=== PATIENT | female | born 1985 | race Caucasian/White ===

== ENCOUNTER 2016-09-06 18:01 | Observation (INO) | payer OTHER ==
[2016-09-06 18:09] VITALS: BMI 28.3
[2016-09-06] MEDS ORDERED: Albuterol-Ipratrop 3 mg / 0.5 (3 ml) UD IH STA ×3 (18:45→20:46)
--- NOTE | 2016-09-06 18:55 | ED PDOC ---
Arrival/HPI - General Chief Complaint: Back Pain Time Seen by Provider: 09/06/16 18:14 Historian: Patient - History of Present Illness Narrative History of Present Illness (Text): 09/06/16 18:27 A 31 year old female, with a past medical history of allergies and family history of coronary disease, presents to the emergency department complaining of worsening shortness of breath and a productive cough for two weeks. Patient notes back discomfort, more on the left side. Patient also notes difficulty breathing that worsens with deep breaths. Patient reports was given steroids by PMD. Patient uses an inhaler every 3-4 hours, last used an hour ago. Patient notes a sore throat and fever but denies any other complaints at this time. PMD: Dr. Kauffman medication: Azithromycin Time/Duration: Other (2 weeks) Symptom Onset: Sudden Symptom Course: Unchanged Activities at Onset: Rest Context: Home Associated Symptoms (Text): back discomfort Past Medical History - Provider Review Nursing Documentation Reviewed: Yes - Past History Past History: No Previous - Infectious Disease Hx of Infectious Diseases: None - Tetanus Immunization Tetanus Immunization: Up to Date - Past Medical History Past Medical History: No Previous - Cardiac Hx Cardiac Disorders: No - Pulmonary Hx Respiratory Disorders: Yes Hx Asthma: Yes - Neurological Hx Migraine: Yes - HEENT Hx HEENT Disorder: No Hx Deafness: No - Renal Hx Renal Disorder: No - Endocrine/Metabolic Hx Endocrine Disorders: No - Hematological/Oncological Hx Blood Disorders: No - Integumentary Hx Dermatological Disorder: No - Musculoskeletal/Rheumatological Hx Musculoskeletal Disorders: No - Gastrointestinal Hx Gastrointestinal Disorders: No - Genitourinary/Gynecological Hx Genitourinary Disorders: No - Psychiatric Hx Psychophysiologic Disorder: No Hx Anxiety: No Hx Bipolar Disorder: No Hx Depression: No Hx Emotional Abuse: No Hx Hallucinations: No Hx Panic Disorder: No Hx Post Traumatic Stress Disorder: No Hx Psychosis: No Hx Physical Abuse: No Hx Schizophrenia: No Hx Sexual Abuse: No Hx Substance Use: No - Surgical History Hx Section: Yes (x1) Hx Tonsillectomy: Yes Hx Tubal Ligation: Yes - Anesthesia Hx Anesthesia: Yes Hx Anesthesia Reactions: No Hx Malignant Hyperthermia: No - Suicidal Assessment Feels Threatened In Home Enviroment: No Family/Social History - Physician Review Nursing Documentation Reviewed: Yes Family/Social History: No Known Family HX Smoking Status: Former Smoker Hx Alcohol Use: Yes Hx Substance Use: No Hx Substance Use Treatment: No Allergies/Home Meds Allergies/Adverse Reactions: Allergies seafood Allergy (Uncoded 09/06/16 18:09) ANAPHYLAXIS Home Medications: Home Meds Medication Instructions Recorded Confirmed Albuterol HFA [Ventolin HFA 90 1 puff IH PRN PRN 09/06/16 09/06/16 mcg/actuation (8 g)] Montelukast [Singulair] 10 mg PO DAILY 09/06/16 09/06/16 Review of Systems - Review of Systems Constitutional: Fatigue, Fevers ENT: Sore Throat, Rhinorrhea, Sinus Congestion. absent: Hearing Changes, Voice Changes Respiratory: SOB, Cough (phlegm) Cardiovascular: HAYES. absent: Chest Pain, Edema Gastrointestinal: absent: Abdominal Pain, Nausea, Vomiting Musculoskeletal: Back Pain, Other (back discomfort) Neurological: absent: Dizziness, Focal Weakness Endocrine: absent: Polyuria Hemo/Lymphatic: absent: Easy Bleeding Psychiatric: absent: Depression Physical Exam Vital Signs Reviewed: Yes Vital Signs Temp Pulse Resp BP Pulse Ox 09/06/16 22:10 98.1 F 74 20 126/73 98 09/06/16 20:37 98 F 69 98 09/06/16 18:13 37.8 F L 92 H 18 119/78 100 Temperature: Afebrile Blood Pressure: Normal Pulse: Regular Respiratory Rate: Normal Appearance: Positive for: Well-Appearing, Non-Toxic, Comfortable Pain Distress: None Mental Status: Positive for: Alert and Oriented X 3 - Systems Exam Head: Present: Atraumatic, Normocephalic Pupils: Present: PERRL Extroacular Muscles: Present: EOMI Conjunctiva: Present: Normal Mouth: Present: Moist Mucous Membranes Neck: Present: Normal Range of Motion. No: Meningeal Signs Respiratory/Chest: Present: Other (mild expiratory wheezing at R base). No: Accessory Muscle Use Cardiovascular: Present: Regular Rate and Rhythm, Normal S1, S2. No: Murmurs Abdomen: Present: Normal Bowel Sounds. No: Tenderness, Distention, Peritoneal Signs Back: Present: Paraspinal Tenderness (upper back, no midline pain) Upper Extremity: Present: Normal Inspection. No: Cyanosis, Edema Lower Extremity: Present: Normal Inspection. No: Edema Neurological: Present: Speech Normal, Motor Func Grossly Intact, Normal Sensory Function Skin: Present: Warm, Dry, Normal Color, Other (no vesicular rash). No: Rashes Psychiatric: Present: Alert, Oriented x 3, Normal Insight, Normal Concentration Medical Decision Making ED Course and Treatment: 09/06/16 18:27 Impression: A 31 year old female with shortness of breath and productive cough. Differential Diagnosis included but are not limited to: pneumonia vs. bronchitis vs. pulmonary embolism vs. coronary artery disease Plan: -- EKG -- chest xray -- labs -- Urinalysis -- Reassess and disposition Prior Visits: Notes and results from previous visits were reviewed. Patient last reported to the emergency department on 01/01/16 for evaluation of headache, photophobia and diarrhea. Patient was discharged and advised to follow up with private doctor and call neurologist for headache reevaluation. Progress Notes: Patient reports two weeks of symptoms. On exam, mild wheezing noted, pain with deep breaths on re-evaluation but pain is palpable in back. No rash noted. NO rales. No calf pain or edema. No nv deficits. 09/06/16 20:13 As read by me, chest xray was unremarkable. D dimer unremarkable. sats 100%. Denies chest pain with exertion. No prior ekg for comparison. Initial troponin unremarkable. Patient has been treated with inhaler, antibiotics, steroids for past two weeks, currently on medrol dos emmy. Will administer additional nebulizer and Solumedrol as wheezing persistent after initial nebulizer. No prior EKG for comparison, although patient with unremarkable troponin, denies history of known CAD or DM or smoking. No calf pain or swelling noted. Wheezing improved but persistent after nebs and steroids. Given failure of outpatient treatment as described, will admit for observation under oncall physician Dr. Higgins, who accepts admission. She denies chest pain or tightness with exertion. Oxygen saturations 98% on room air. - Lab Interpretations Lab Results: 09/06/16 19:00 09/06/16 19:00 Lab Results 09/06/16 19:00: Sodium 138, Potassium 3.3 L, Chloride 99, Carbon Dioxide 29, Anion Gap 13, BUN 13, Creatinine 0.7, Est GFR ( Amer) > 60, Est GFR (Non- Af Amer) > 60, Random Glucose 107, Calcium 9.5, Total Bilirubin 0.5, AST 19, ALT 32, Alkaline Phosphatase 42, Lactate Dehydrogenase 328 L, Total Creatine Kinase 26 L, Troponin I < 0.01, Total Protein 7.4, Albumin 4.3, Globulin 3.1, Albumin/Globulin Ratio 1.4 09/06/16 19:00: Urine Color Yellow, Urine Appearance Sl cloudy, Urine pH 6.5, Ur Specific [place] 1.020, Urine Protein Negative, Urine Glucose (UA) Negative, Urine Ketones Negative, Urine Blood Negative, Urine Nitrate Negative, Urine Bilirubin Negative, Urine Urobilinogen 0.2, Ur Leukocyte Esterase Negative, Urine HCG, Qual Negative 09/06/16 19:00: PT 11.0, INR 1.02, APTT 28.5, D-Dimer, Quantitative 0.19 09/06/16 19:00: WBC 11.3 H, RBC 4.22, Hgb 13.4, Hct 38.4, MCV 91.0, MCH 31.8, MCHC 34.9, RDW 13.1, Plt Count 271, MPV 10.4, Gran % 59.3, Lymph % (Auto) 33.8, Mason % (Auto) 6.0, Eos % (Auto) 0.6 L, Baso % (Auto) 0.3, Gran # 6.72 H, Lymph # 3.8 H, Mason # 0.7 H, Eos # 0.1, Baso # 0.03 I have reviewed the lab results: Yes - RAD Interpretation Radiology Orders: 09/06/16 18:41 CHEST TWO VIEWS (PA/LAT) [RAD] Stat - EKG Interpretation EKG Interpretation (Text): 09/06/16 21:01 EKG at 18:52 normal sinus rhythm with sinus arrhythmia, possible left atrial enlargement Interpreted by ED Physician: Yes Type: 12 lead EKG - Medication Orders Current Medication Orders: Acetaminophen (Tylenol 325mg Tab) 650 mg PO Q6H PRN PRN Reason: Fever >100.4 F Levofloxacin/Dextrose (Levaquin 500mg) 500 mg in 100 mls @ 100 mls/hr IVPB DAILY NATALY Levalbuterol HCl (Xopenex) 1.25 mg IH [id number] NATALY Methylprednisolone (Solu-Medrol) 40 mg IV Q6 NATALY Pantoprazole Sodium (Protonix Ec Tab) 40 mg PO 0630 NATALY Discontinued Medications Albuterol/Ipratropium (Duoneb 3 Mg/0.5 Mg (3 Ml) Ud) 3 ml IH STAT STA Stop: 09/06/16 18:46 Last Admin: 09/06/16 19:34 Dose: 3 ml Albuterol/Ipratropium (Duoneb 3 Mg/0.5 Mg (3 Ml) Ud) 3 ml IH STAT STA Stop: 09/06/16 19:56 Last Admin: 09/06/16 20:24 Dose: 3 ml Albuterol/Ipratropium (Duoneb 3 Mg/0.5 Mg (3 Ml) Ud) 3 ml IH STAT STA Stop: 09/06/16 20:47 Last Admin: 09/06/16 21:00 Dose: 3 ml Potassium Chloride (K-Dur 20 Meq Er Tab) 20 meq PO STAT STA Stop: 09/06/16 19:57 Last Admin: 09/06/16 20:28 Dose: 20 meq - Scribe Statement The provider has reviewed the documentation as recorded by the Jennie Ramríez Provider Scribe Attestation: All medical record entries made by the Jennie were at my direction and personally dictated by me. I have reviewed the chart and agree that the record accurately reflects my personal performance of the history, physical exam, medical decision making, and the department course for this patient. I have also personally directed, reviewed, and agree with the discharge instructions and disposition. Disposition/Present on Arrival - Present on Arrival Any Indicators Present on Arrival: No History of DVT/PE: No History of Uncontrolled Diabetes: No Urinary Catheter: No History of Decub. Ulcer: No History Surgical Site Infection Following: None - Disposition Have Diagnosis and Disposition been Completed?: Yes Diagnosis: Asthma exacerbation Disposition: HOSPITALIZED Disposition Time: 22:00 Patient Plan: Admission, Observation Condition: FAIR
[2016-09-06 19:20] LABS: ADD MANUAL DIFF? NO
[2016-09-06 19:23] LABS: PH,URINE 6.5 (4.7-8.0); URINE BILIRUBIN NEGATIVE (NEGATIVE); URINE BLOOD NEGATIVE (NEGATIVE); URINE GLUCOSE (UA) NEGATIVE (NEGATIVE); URINE KETONE NEGATIVE (NEGATIVE); URINE LEUKOCYTE ESTERASE NEGATIVE Leu/uL (NEGATIVE); URINE PROTEIN NEGATIVE mg/dL (<30 mg/dL); URINE UROBILINOGEN 0.2 E.U./dL (<1 E.U./dL)
[2016-09-06 19:24] LABS: URINE APPEARANCE SL CLOUDY (CLEAR); URINE COLOR YELLOW (YELLOW)
[2016-09-06 19:34] LABS: BASO # 0.03 K/mm3 (0.0-2.0); BASO % 0.3 % (0.0-3.0); EOS # 0.1 (0.0-0.7); EOS % 0.6 % (1.5-5.0); GRAN # 6.72 (1.4-6.5); GRAN % 59.3 % (50.0-68.0); HEMATOCRIT 38.4 % (36.0-48.0); LYMPH # 3.8 (1.2-3.4); LYMPH % 33.8 % (22.0-35.0); MEAN CORPUSCULAR HEMOGLOBIN 31.8 pg (25.0-35.0); MEAN CORPUSCULAR HGB CONC 34.9 g/dl (31.0-37.0); MEAN PLATELET VOLUME 10.4 fl (7.0-11.0); MONO # 0.7 (0.1-0.6); PLATELET COUNT 271 10^3/uL (120.0-450.0); RED CELL DISTRIBUTION WIDTH 13.1 % (11.5-14.5); WHITE BLOOD COUNT 11.3 10^3/ul (4.5-11.0)
[2016-09-06 19:37] LABS: ALB/GLOB RATIO 1.4 (1.1-1.8); ALKALINE PHOSPHATASE 42 U/L (38-133); ALT/SGPT 32 U/L (7-56); AST/SGOT 19 U/L (15-39); BILIRUBIN,TOTAL 0.5 mg/dL (0.2-1.3); BLOOD UREA NITROGEN 13 mg/dL (7-21); CALCIUM 9.5 mg/dL (8.4-10.5); CARBON DIOXIDE 29 mmol/L (21-33); CHLORIDE 99 mmol/L (98-107); GFR AFRICAN-AMERICAN > 60; GLUCOSE,RANDOM 107 mg/dL (70-110); POTASSIUM 3.3 mmol/L (3.6-5.0); SODIUM 138 mmol/L (132-148); TOTAL PROTEIN 7.4 g/dL (5.8-8.3)
[2016-09-06 19:48] LABS: INR 1.02 (0.93-1.08); PARTIAL THROMBOPLASTIN TIME 28.5 Seconds (23.7-30.8)
[2016-09-06 19:49] LABS: D DIMER 0.19 mg/L FEU (0-0.50)
[2016-09-06 19:52] LABS: TROPONIN I < 0.01 ng/mL
[2016-09-06] MEDS ORDERED: Potassium Chloride 20 mEq ER Tab PO STA (19:56)
[2016-09-06] MEDS ORDERED: MethylPREDNISolone 40 mg Vial IVP STA (20:25)
[2016-09-07] MEDS: MethylPREDNISolone 40 mg Vial IV SCH ×3 (00:31→11:37)
[2016-09-07] MEDS: Levalbuterol 1.25 MG/3 ML Inhal Soln UD IH SCH ×2 (02:36→07:28)
[2016-09-07] MEDS ORDERED: Pantoprazole 40 mg EC Tab PO SCH (06:30)
--- NOTE | 2016-09-07 06:39 | RAD ---
HISTORY: cough, sob COMPARISON: No prior. TECHNIQUE: Chest PA and lateral FINDINGS: LUNGS: No active pulmonary disease. PLEURA: No significant pleural effusion identified. No pneumothorax apparent. CARDIOVASCULAR: Normal. OSSEOUS STRUCTURES: Mild scoliosis deformity convex to the left upper thoracic region theNo significant abnormalities. VISUALIZED UPPER ABDOMEN: Normal. OTHER FINDINGS: None. IMPRESSION: No active disease.
[2016-09-07 07:23] VITALS: BP 109/60; PULSE 83; RESP 16; TEMP 98.7; O2SAT 97
--- NOTE | 2016-09-07 07:38 | CT ---
PROCEDURE: CT Chest without contrast HISTORY: sob COMPARISON: Comparison made with CT scan abdomen pelvis 11/19/2014 which imaged both lung bases. Comparison also made with the chest radiograph 09/06/2016 TECHNIQUE: Contiguous axial images were obtained through the chest without intravenous contrast enhancement. Sagittal and coronal reconstructions were performed. Radiation dose (DLP): 358.57 mGy-cm. This CT exam was performed using one or more of the following dose reduction techniques: Automated exposure control, adjustment of the mA and/or kV according to patient size, and/or use of iterative reconstruction technique. FINDINGS: LUNGS: Clear lungs. Visualized airway clear. MEDIASTINUM: Unremarkable thoracic aorta. No aneurysm. Normal sized heart. Main pulmonary artery unremarkable. No vascular congestion. No lymphadenopathy. Small hiatal hernia. PLEURA: Minimal biapical pleural thickening. No pleural effusion. No evidence of pneumothorax BONES: No fracture. No destructive lesion. UPPER ABDOMEN: AllGrossly unremarkable. OTHER FINDINGS: None. IMPRESSION: No acute infiltrates. Minimal biapical pleural thickening
[2016-09-07] MEDS ORDERED: levoFLOXacin 500 mg in D5W 500 MG/100 ML BAG IVPB SCH (10:00)
--- NOTE | 2016-09-07 13:10 | HP ---
HISTORY OF PRESENT ILLNESS: The patient is 31 years old, seen and examined. The patient states she has been having cough, congestion, asthma attack going on for the last 2 weeks. She was seen by ____ in his office. She was given Singulair. She has been on nebulizer treatment. She was given st eroids. She was on second round of steroid on third day, but she was having cough, congestion, short ness of breath, chest tightness going on for almost 2 weeks. So she came to the Emergency Room for f dimitrios evaluation. She has significant past medical history of asthma. The patient denies any fever or chills. She does say that she had previously ____. So for the last 2 weeks, she has been coughing a lot. Denies any nausea or vomiting, no abdominal pain. No recent t ravel abroad. PAST MEDICAL HISTORY: Significant for asthma. ALLERGIES: SEAFOOD. MEDICATIONS AT HOME: She is on Singulair 10 mg daily. She is on Ventolin HFA. She was getting Leva libertad 500 daily. SOCIAL HISTORY: She works in a local company. She does smoke here and there. She also socially annalise nks. PHYSICAL EXAMINATION: GENERAL: She is awake and alert. She states she feels a lot better since she came in. VITAL SIGNS: She is afebrile, pulse 83, respirations 16, blood pressure 109/60. LUNGS: Bilateral fair airflow. No rhonchi or crackle. HEART: S1, S2 audible. ABDOMEN: Soft, nontender. No rebound, no guarding. NEUROLOGIC: She is awake and alert, communicative, ambulatory. LABORATORY DATA: WBC 11.3, hemoglobin 13.4, hematocrit 38.4, platelets of 271. PT 11.0, INR 1.02. Chemistry: Sodium 133, potassium 3.3, chloride 99, CO2 of 29, BUN 13, creatinine 0.7, blood sugar 10 7. LFTs are within normal limits. Urinalysis is unremarkable. ASSESSMENT: 1. Asthma exacerbation. 2. Asthmatic bronchitis. CT scan of the chest negative for infiltrate. PLAN: The patient is being discharged home on Medrol Dosepak, Levaquin. She is given prescription o f Singulair, Diflucan 150 daily for 1 day, and she is given prescription of Advair. She will follow with her PMD in a week or so. Norma Higgins MD cc: [phone] TT: 09/07/2016 13:10:15 jn
--- NOTE | 2016-09-07 16:45 | CARD ---
APPROVED REPORT EKG Measurement Heart [id number] <Conclusion> Normal sinus rhythm with sinus arrhythmia Possible Left atrial enlargement Possible Anteroseptal infarct, age undetermined Abnormal ECG
== END 2016-09-07 14:09 | disposition home or self-care (01) ==
LOC: ED 18:01 → ERH 22:00 → 5RNO 23:57
PROVIDERS: ADMIT Internal Medicine; ATTEND Internal Medicine
DX: J45.901 Unspecified asthma with (acute) exacerbation (principal); F17.200 Nicotine dependence, unspecified, uncomplicated
CPT/HCPCS: 71020; 71250; 80053; 81003; 82550; 83615; 84484; 84703; 85025; 85378; 85610; 85730; 93005; 94640; 94760; 99285; G0378; J2920

== ENCOUNTER 2016-10-26 18:20 | Emergency (ER) | payer OTHER ==
[2016-10-26 18:32] VITALS: BMI 20.5
--- NOTE | 2016-10-26 20:26 | ED PDOC ---
Arrival/HPI - General Chief Complaint: Respiratory Distress Time Seen by Provider: 10/26/16 18:25 Past Medical History - Past History Past History: No Previous - Infectious Disease Hx of Infectious Diseases: None - Tetanus Immunization Tetanus Immunization: Up to Date - Past Medical History Past Medical History: No Previous - Cardiac Hx Cardiac Disorders: No - Pulmonary Hx Respiratory Disorders: Yes Hx Asthma: Yes Hx Bronchitis: Yes - Neurological Hx Migraine: Yes - HEENT Hx HEENT Disorder: No - Renal Hx Renal Disorder: No - Endocrine/Metabolic Hx Endocrine Disorders: No - Hematological/Oncological Hx Blood Disorders: No - Integumentary Hx Dermatological Disorder: No - Musculoskeletal/Rheumatological Hx Musculoskeletal Disorders: No Hx Falls: No - Gastrointestinal Hx Gastrointestinal Disorders: No - Genitourinary/Gynecological Hx Genitourinary Disorders: No - Psychiatric Hx Psychophysiologic Disorder: No Hx Anxiety: No Hx Bipolar Disorder: No Hx Depression: No Hx Emotional Abuse: No Hx Hallucinations: No Hx Panic Disorder: No Hx Post Traumatic Stress Disorder: No Hx Psychosis: No Hx Physical Abuse: No Hx Schizophrenia: No Hx Sexual Abuse: No Hx Substance Use: No - Surgical History Other/Comment: csection, tocilectomy cyst removal tubilization - Anesthesia Hx Anesthesia: Yes Hx Anesthesia Reactions: No Hx Malignant Hyperthermia: No - Suicidal Assessment Feels Threatened In Home Enviroment: No Family/Social History Smoking Status: Current Some Days Smoker Hx Alcohol Use: Yes (socially) Hx Substance Use: No Hx Substance Use Treatment: No Allergies/Home Meds Allergies/Adverse Reactions: Allergies seafood Allergy (Uncoded 09/06/16 18:09) ANAPHYLAXIS Home Medications: Home Meds Medication Instructions Recorded Confirmed Albuterol HFA [Ventolin HFA 90 1 puff IH PRN PRN 09/06/16 09/06/16 mcg/actuation (8 g)] Montelukast [Singulair] 10 mg PO DAILY 09/06/16 09/06/16 Physical Exam Vital Signs Temp Pulse Resp BP Pulse Ox 10/26/16 19:50 18 10/26/16 18:58 98.5 F 85 14 126/86 100 Medical Decision Making - RAD Interpretation Radiology Orders: 10/26/16 18:32 CHEST TWO VIEWS (PA/LAT) [RAD] Stat Disposition/Present on Arrival - Present on Arrival History of DVT/PE: No History of Uncontrolled Diabetes: No Urinary Catheter: No History of Decub. Ulcer: No History Surgical Site Infection Following: None - Disposition Referrals: Brendan Kauffman MD [Primary Care Provider] - Follow up with primary
--- NOTE | 2016-10-26 20:27 | ED PDOC ---
Arrival/HPI - General Chief Complaint: Respiratory Distress Time Seen by Provider: 10/26/16 18:25 Historian: Patient - History of Present Illness Narrative History of Present Illness (Text): 10/26/16 18:25 A 31 year old female, whose past medical history includes asthma, presents to the emergency department complaining of feeling "lung/back pain bilaterally" for the past week. Patient denies any shortness of breath, cough, fever, chills , chest pain, dyspnea on exertion or any other complaints at this time. Past Medical History - Provider Review Nursing Documentation Reviewed: Yes - Past History Past History: No Previous - Infectious Disease Hx of Infectious Diseases: None - Tetanus Immunization Tetanus Immunization: Up to Date - Past Medical History Past Medical History: No Previous - Cardiac Hx Cardiac Disorders: No - Pulmonary Hx Respiratory Disorders: Yes Hx Asthma: Yes Hx Bronchitis: Yes - Neurological Hx Migraine: Yes - HEENT Hx HEENT Disorder: No - Renal Hx Renal Disorder: No - Endocrine/Metabolic Hx Endocrine Disorders: No - Hematological/Oncological Hx Blood Disorders: No - Integumentary Hx Dermatological Disorder: No - Musculoskeletal/Rheumatological Hx Musculoskeletal Disorders: No Hx Falls: No - Gastrointestinal Hx Gastrointestinal Disorders: No - Genitourinary/Gynecological Hx Genitourinary Disorders: No - Psychiatric Hx Psychophysiologic Disorder: No Hx Anxiety: No Hx Bipolar Disorder: No Hx Depression: No Hx Emotional Abuse: No Hx Hallucinations: No Hx Panic Disorder: No Hx Post Traumatic Stress Disorder: No Hx Psychosis: No Hx Physical Abuse: No Hx Schizophrenia: No Hx Sexual Abuse: No Hx Substance Use: No - Surgical History Other/Comment: csection, tocilectomy cyst removal tubilization - Anesthesia Hx Anesthesia: Yes Hx Anesthesia Reactions: No Hx Malignant Hyperthermia: No - Suicidal Assessment Feels Threatened In Home Enviroment: No Family/Social History - Physician Review Nursing Documentation Reviewed: Yes Family/Social History: Unknown Family HX Smoking Status: Current Some Days Smoker Hx Alcohol Use: Yes (socially) Hx Substance Use: No Hx Substance Use Treatment: No Allergies/Home Meds Allergies/Adverse Reactions: Allergies seafood Allergy (Uncoded 09/06/16 18:09) ANAPHYLAXIS Home Medications: Home Meds Medication Instructions Recorded Confirmed Albuterol HFA [Ventolin HFA 90 1 puff IH PRN PRN 09/06/16 09/06/16 mcg/actuation (8 g)] Montelukast [Singulair] 10 mg PO DAILY 09/06/16 09/06/16 Physical Exam - Physical Exam Narrative Physical Exam (Text): - Review of Systems Constitutional: Normal. absent: Fatigue, Weight Change, Fevers Eyes: Normal ENT: Normal Respiratory: "lung pain" absent: SOB, Cough, Sputum Cardiovascular: Normal absent: Chest pain, Palpitations, Syncope Gastrointestinal: Normal absent: Abdominal pain, Diarrhea, Nausea, Vomiting Genitourinary: Normal. absent: Dysuria, Frequency, Hematuria Musculoskeletal: Back pain. absent: Arthralgias, Neck Pain Skin: Normal Neurological: Normal absent: Focal Weakness Endocrine: Normal Hemo/Lymphatic: Normal Psychiatric: Normal - Physical exam Patient appears age appropriate, speaking full sentences without difficulty - Systems Exam Head: Present: Atraumatic, Normocephalic Pupils: Present: PERRL Extraocular Muscles: Present: EOMI Conjunctiva: Present: Normal Mouth: Present: Moist Mucous Membranes Neck: Present: Normal Range of Motion. No: MIDLINE TENDERNESS, Paraspinal Tenderness Respiratory/Chest: Present: Clear to Auscultation, Good Air Exchange. No: Respiratory Distress, Accessory Muscle Use, Tachypnic Cardiovascular: Present: Regular Rate and Rhythm, Normal S1, S2, Peripheral Pulses Present. No: Murmurs Abdomen: Present: Normal Bowel Sounds, No: Tenderness, Peritoneal Signs, Rebound, Guarding, Distention Back: Present: Normal Inspection. No: Midline Tenderness, Paraspinal Tenderness Upper Extremity: Present: Normal Inspection. No: Cyanosis, Edema Lower Extremity: Present: Normal Inspection. No: Edema Neurological: Present: GCS=15, Speech Normal, cranial nerves II through XII fully intact with no cerebellar abnormality, neuro-sensory fully intact. No focal neurological deficits. Skin: Present: Warm, Dry, Normal Color. No: Rashes Lymphatic: Present: OX3, NI, NC Psychiatric: Present: Alert, Oriented x 3, Normal Insight, Normal Concentration Vital Signs Reviewed: Yes Vital Signs Temp Pulse Resp BP Pulse Ox 10/26/16 19:50 18 10/26/16 18:58 98.5 F 85 14 126/86 100 Temperature: Afebrile Blood Pressure: Normal Pulse: Regular Respiratory Rate: Normal Appearance: Positive for: Well-Appearing, Non-Toxic, Comfortable Pain Distress: None Mental Status: Positive for: Alert and Oriented X 3 Medical Decision Making ED Course and Treatment: 10/26/16 18:25 Impression: A 31 year old female with "lung/back pain." Physical examination is unremarkable. Differential of PE was considered but the patient is PERC negative. Patient is in no respiratory distress, is speaking in full sentences and lungs are clear to auscultation bilaterally. Plan: -- EKG -- Chest X-ray -- Reassess and disposition Progress Notes: EKG: Ordered, reviewed, and independently interpreted the EKG. Rate : 83 BPM Rhythm : NSR Interpretation : No ST-segment elevations, interverted T wave in lead III, which is present on previous EKG on 09/06/16. Interpreted by me. Chest X-ray showed no acute disease, as read by me. On reevaluation the patient is in no acute distress. I have discussed the results and plan with the patient, who expresses understanding. Patient given the opportunity to ask question, all questions were answered and there is agreement with the plan to discharge the patient home. Patient is stable for discharge. Patient was instructed to follow up with physician/clinic in 1-2 days or return if symptoms persist/worsen or new concerning symptoms arise. - RAD Interpretation Radiology Orders: 10/26/16 18:32 CHEST TWO VIEWS (PA/LAT) [RAD] Stat - Scribe Statement The provider has reviewed the documentation as recorded by the Scribe Adela Rodriguez Provider Scribe Attestation: All medical record entries made by the Scribe were at my direction and personally dictated by me. I have reviewed the chart and agree that the record accurately reflects my personal performance of the history, physical exam, medical decision making, and the department course for this patient. I have also personally directed, reviewed, and agree with the discharge instructions and disposition. Disposition/Present on Arrival - Present on Arrival Any Indicators Present on Arrival: No History of DVT/PE: No History of Uncontrolled Diabetes: No Urinary Catheter: No History of Decub. Ulcer: No History Surgical Site Infection Following: None - Disposition Have Diagnosis and Disposition been Completed?: Yes Diagnosis: Dyspnea Disposition: HOME/ ROUTINE Disposition Time: 20:27 Patient Plan: Discharge Condition: GOOD Discharge Instructions (ExitCare): Dyspnea (ED) Additional Instructions: PLEASE RETURN TO THE EMERGENCY DEPARTMENT FOR NEW OR WORSENING SYMPTOMS. RETURN RIGHT AWAY IF YOU CANNOT FOLLOW UP WITH YOUR PRIMARY CARE DOCTOR, CLINIC, OR SPECIALIST IN 1-2 DAYS. Referrals: Brendan Kauffman MD [Primary Care Provider] - Follow up with primary
[2016-10-26 21:47] VITALS: BP 126/86; PULSE 85; RESP 18; TEMP 98.5; O2SAT 100
--- NOTE | 2016-10-27 08:07 | RAD ---
HISTORY: sob COMPARISON: 09/06/2016 TECHNIQUE: Chest PA and lateral FINDINGS: LUNGS: No active pulmonary disease. PLEURA: No significant pleural effusion identified. No pneumothorax apparent. CARDIOVASCULAR: Normal. OSSEOUS STRUCTURES: No significant abnormalities. VISUALIZED UPPER ABDOMEN: Normal. OTHER FINDINGS: None. IMPRESSION: No active disease.
--- NOTE | 2016-10-27 12:45 | CARD ---
APPROVED REPORT EKG Measurement Heart [id number] <Conclusion> Normal sinus rhythm Possible Left atrial enlargement Poor RR progression
== END 2016-10-26 20:40 | disposition home or self-care (01) ==
LOC: ED 18:20
DX: R06.00 Dyspnea, unspecified (principal)

== ENCOUNTER 2017-01-13 11:43 | Emergency (ER) | payer OTHER ==
[2017-01-13 11:45] VITALS: BMI 29.1
[2017-01-13 11:50] VITALS: RESP 18; TEMP 98.7
--- NOTE | 2017-01-13 13:52 | RAD ---
PROCEDURE: Right Ankle Radiographs. HISTORY: ankle pain COMPARISON: None FINDINGS: BONES: Normal. No fracture. JOINTS: Normal. No osteoarthritis. Ankle mortise maintained. Talar dome intact SOFT TISSUES: Lateral soft tissue swelling OTHER FINDINGS: None. IMPRESSION: Soft tissue swelling. No fracture noted
--- NOTE | 2017-01-13 14:12 | ED PDOC ---
Arrival/HPI - General Chief Complaint: Lower Extremity Problem/Injury Time Seen by Provider: 01/13/17 12:06 Historian: Patient - History of Present Illness Narrative History of Present Illness (Text): 01/13/17 16:26 31-year-old female presents today with a 5 week history of right ankle pain and swelling s/p injury. Patient states she was seen by her boiler operator helper and was given a walking boot 5 weeks ago. Patient states she was supposed to follow-up with the boiler operator helper last week but was unable to. Patient states she has been using the walking boot at times and at times she will be walking without the boot in place. No medications have been taken for pain at home. Patient states occasionally she will take a Motrin as needed. Patient denies numbness weakness or tingling in the extremity at present time but states yesterday she noticed some tingling sensation to the toes on the right foot. Patient states her boiler operator helper wanted her to get an ultrasound of the leg to make sure that there was no blood clot in the leg. Patient states she does have a history of neuropathy in her lower extremities so she was not sure if the numbness was due to her prior neuropathy. Time/Duration: > week (5 weeks) Symptom Onset: Sudden Symptom Course: Unchanged Quality: Aching Past Medical History - Provider Review Nursing Documentation Reviewed: Yes - Travel History Have you recently traveled outside [place] w/in the past 3 mons?: No - Past History Past History: No Previous - Infectious Disease Hx of Infectious Diseases: None - Tetanus Immunization Tetanus Immunization: Up to Date - Past Medical History Past Medical History: No Previous - Cardiac Hx Cardiac Disorders: No - Pulmonary Hx Respiratory Disorders: Yes Hx Asthma: Yes Hx Bronchitis: Yes - Neurological Hx Migraine: Yes - HEENT Hx HEENT Disorder: No - Renal Hx Renal Disorder: No - Endocrine/Metabolic Hx Endocrine Disorders: No - Hematological/Oncological Hx Blood Disorders: No - Integumentary Hx Dermatological Disorder: No - Musculoskeletal/Rheumatological Hx Musculoskeletal Disorders: No Hx Falls: No - Gastrointestinal Hx Gastrointestinal Disorders: No - Genitourinary/Gynecological Hx Genitourinary Disorders: No - Psychiatric Hx Psychophysiologic Disorder: No Hx Anxiety: No Hx Bipolar Disorder: No Hx Depression: No Hx Emotional Abuse: No Hx Hallucinations: No Hx Panic Disorder: No Hx Post Traumatic Stress Disorder: No Hx Psychosis: No Hx Physical Abuse: No Hx Schizophrenia: No Hx Sexual Abuse: No Hx Substance Use: No - Surgical History Hx Section: Yes Hx Tonsillectomy: Yes Hx Tubal Ligation: Yes Other/Comment: csection, tocilectomy cyst removal tubilization - Anesthesia Hx Anesthesia: Yes Hx Anesthesia Reactions: No Hx Malignant Hyperthermia: No - Suicidal Assessment Feels Threatened In Home Enviroment: No Family/Social History - Physician Review Nursing Documentation Reviewed: Yes Family/Social History: Unknown Family HX Smoking Status: Current Some Days Smoker Hx Alcohol Use: Yes (socially) Hx Substance Use: No Hx Substance Use Treatment: No Allergies/Home Meds Allergies/Adverse Reactions: Allergies seafood Allergy (Uncoded 01/13/17 11:45) ANAPHYLAXIS Review of Systems - Review of Systems Constitutional: absent: Fatigue, Fevers Respiratory: absent: SOB, Cough Cardiovascular: absent: Chest Pain Gastrointestinal: absent: Abdominal Pain, Nausea, Vomiting Musculoskeletal: Arthralgias. absent: Back Pain, Neck Pain Skin: absent: Rash, Pruritis Neurological: absent: Headache, Dizziness Physical Exam Vital Signs Reviewed: Yes Vital Signs Temp Pulse Resp BP Pulse Ox 01/13/17 14:22 78 18 127/80 98 01/13/17 11:49 98.7 F 96 H 18 120/77 96 Temperature: Afebrile Blood Pressure: Normal Pulse: Regular Respiratory Rate: Normal Appearance: Positive for: Well-Appearing, Non-Toxic, Comfortable Pain Distress: None Mental Status: Positive for: Alert and Oriented X 3 - Systems Exam Head: Present: Atraumatic Mouth: Present: Moist Mucous Membranes Respiratory/Chest: Present: Clear to Auscultation Cardiovascular: Present: Regular Rate and Rhythm Upper Extremity: Present: Normal Inspection Lower Extremity: Present: NORMAL PULSES, Normal ROM, Tenderness (right ankle; + ttp over lateral malleolus and distal fibula; + minimal edema; no erythema; no ecchymosis; sensation and distal pulses intact; cap refill <2. ), Swelling, Neurovascularly Intact, Capillary Refill < 2 s. No: CALF TENDERNESS, Cyanosis, Erythema, Deformity Neurological: Present: GCS=15, Speech Normal Skin: Present: Warm, Dry, Normal Color. No: Rashes Psychiatric: Present: Alert, Oriented x 3 Medical Decision Making ED Course and Treatment: 01/13/17 16:30 Patient nontoxic well-appearing in no distress with stable vital signs X-rays of the right ankle;FINDINGS: BONES: Normal. No fracture. JOINTS: Normal. No osteoarthritis. Ankle mortise maintained. Talar dome intact SOFT TISSUES: Lateral soft tissue swelling OTHER FINDINGS: None. IMPRESSION: Soft tissue swelling. No fracture noted Venous duplex; right leg; no dvt. motrin po Patient placed in kamryn wrap and air cast crutches given for ambulation. pt was advised RICE, pt was advised to use crutches vs using walking boot. I discussed all results in depth with the patient advised to followup with the orthopedist within the next 2 days. Advised return if symptoms worsen persist or new symptoms develop Patient verbalizes understanding of discharge instructions and need for immediate followup. Impression: Ankle pain Motrin every 6 hours as needed for pain USE crutches for ambulation Rest, ice, compression, elevation Followup with the orthopedist within the next 2 days Followup with primary care physician within the next 2 days Return if any other concerning symptoms develop - RAD Interpretation Radiology Orders: 01/13/17 12:24 ANKLE RIGHT 3 VIEWS ROUTINE [RAD] Stat DUPLEX LOWER EXTRM VEIN RIGHT [US] Stat - Medication Orders Current Medication Orders: Discontinued Medications Ketorolac Tromethamine (Toradol) 60 mg IM STAT STA Stop: 01/13/17 12:26 Last Admin: 01/13/17 13:02 Dose: 60 mg MAR Pain Assessment Document 01/13/17 13:02 EQ (Rec: 01/13/17 13:03 EQ [id number]) Pain Reassessment Is this a pain reassessment? No Sleep Is patient sleeping during reassessment? No Presence of Pain Presence of Pain Yes Pain Scale Used Pain Scale Used Numeric Location Left, Right or Bilateral Left Pain Location Body Site Index Finger Description Description Constant IM Administration Charges Document 01/13/17 13:02 EQ (Rec: 01/13/17 13:03 EQ [id number]) Charges for Administration # of IM Administrations 1 Disposition/Present on Arrival - Present on Arrival Any Indicators Present on Arrival: No History of DVT/PE: No History of Uncontrolled Diabetes: No Urinary Catheter: No History of Decub. Ulcer: No History Surgical Site Infection Following: None - Disposition Have Diagnosis and Disposition been Completed?: Yes Diagnosis: Ankle pain Disposition: HOME/ ROUTINE Disposition Time: 14:06 Patient Plan: Discharge Condition: GOOD Discharge Instructions (ExitCare): Arthralgia (ED) Additional Instructions: Motrin every 6 hours as needed for pain USE crutches for ambulation Rest, ice, compression, elevation Followup with the orthopedist within the next 2 days Followup with primary care physician within the next 2 days Return if any other concerning symptoms develop Prescriptions: Ibuprofen [Motrin] 600 mg PO Q6H PRN #20 tab PRN Reason: pain/fever reduction Referrals: Brendan Kauffman MD [Primary Care Provider] - Follow up with primary Umang Scott DO [Staff Provider] - Follow up with primary Forms: [employer] (Japanese), WORK NOTE
[2017-01-13 14:22] VITALS: BP 127/80; PULSE 78; O2SAT 98
--- NOTE | 2017-01-13 18:38 | US ---
PROCEDURE: Right lower extremity venous US HISTORY: Leg pain and swelling. Evaluate for DVT. PHYSICIAN(S): Darrell Bunch M.D. TECHNIQUE: Duplex sonography and color-flow Doppler with graded compression were used to evaluate the deep venous system of the right lower extremity. FINDINGS: The visualized deep venous system of the right lower extremity is sonographically normal and compressible. Normal waveforms and augmentation are seen. There is no sonographic evidence for deep venous thrombosis in the visualized segments of the right lower extremity. IMPRESSION: 1. No sonographic evidence for deep venous thrombosis in the visualized segments of the right lower extremity.
== END 2017-01-13 14:35 | disposition home or self-care (01) ==
LOC: ED 11:43
DX: M25.571 Pain in right ankle and joints of right foot (principal)
CPT/HCPCS: 73610; 93971; 96372; 99284; J1885

== ENCOUNTER 2017-05-25 19:39 | Emergency (ER) | payer SELFPAY ==
[2017-05-25 19:40] VITALS: BMI 29.1
[2017-05-25 20:17] VITALS: BP 122/84; PULSE 81; RESP 18; TEMP 98.4; O2SAT 100
[2017-05-25] MEDS ORDERED: Sodium Chloride 0.9% 1,000 ML IV STA (20:41)
--- NOTE | 2017-05-25 20:50 | ED PDOC ---
Arrival/HPI - General Chief Complaint: Abdominal Pain Time Seen by Provider: 05/25/17 20:34 Historian: Patient - History of Present Illness Narrative History of Present Illness (Text): 05/25/17 20:47 A 31 year old female, whose past medical history includes diverticulitis, presents to the emergency department complaining of left lower abdominal pain for 1 week. Patient reports her pain feels similar to her previous diverticulitis symptoms. Patient denies any fever, chills, nausea, vomiting, diarrhea, chest pain, shortness of breath or any other complaints. Time/Duration: 1 week Symptom Course: Unchanged Activities at Onset: Light Context: Home Past Medical History - Provider Review Nursing Documentation Reviewed: Yes - Past History Past History: No Previous - Infectious Disease Hx of Infectious Diseases: None - Tetanus Immunization Tetanus Immunization: Up to Date - Past Medical History Past Medical History: No Previous - Cardiac Hx Cardiac Disorders: No - Pulmonary Hx Respiratory Disorders: Yes Hx Asthma: Yes Hx Bronchitis: Yes - Neurological Hx Migraine: Yes - HEENT Hx HEENT Disorder: No - Renal Hx Renal Disorder: No - Endocrine/Metabolic Hx Endocrine Disorders: No - Hematological/Oncological Hx Blood Disorders: No - Integumentary Hx Dermatological Disorder: No - Musculoskeletal/Rheumatological Hx Musculoskeletal Disorders: No Hx Falls: No - Gastrointestinal Hx Gastrointestinal Disorders: No - Genitourinary/Gynecological Hx Genitourinary Disorders: No - Psychiatric Hx Psychophysiologic Disorder: No Hx Anxiety: No Hx Bipolar Disorder: No Hx Depression: No Hx Emotional Abuse: No Hx Hallucinations: No Hx Panic Disorder: No Hx Post Traumatic Stress Disorder: No Hx Psychosis: No Hx Physical Abuse: No Hx Schizophrenia: No Hx Sexual Abuse: No Hx Substance Use: No - Surgical History Hx Section: Yes Hx Tonsillectomy: Yes Hx Tubal Ligation: Yes Other/Comment: csection, tocilectomy cyst removal tubilization - Anesthesia Hx Anesthesia: Yes Hx Anesthesia Reactions: No Hx Malignant Hyperthermia: No - Suicidal Assessment Feels Threatened In Home Enviroment: No Family/Social History - Physician Review Nursing Documentation Reviewed: Yes Family/Social History: No Known Family HX Smoking Status: Current Some Days Smoker Hx Alcohol Use: Yes (socially) Hx Substance Use: No Hx Substance Use Treatment: No Allergies/Home Meds Allergies/Adverse Reactions: Allergies seafood Allergy (Uncoded 05/25/17 20:16) ANAPHYLAXIS Home Medications: Home Meds Medication Instructions Recorded Confirmed No Known Home Med 05/25/17 05/25/17 Review of Systems - Physician Review All systems were reviewed & negative as marked: Yes - Review of Systems Constitutional: absent: Fevers, Night Sweats Respiratory: absent: SOB Cardiovascular: absent: Chest Pain Gastrointestinal: Abdominal Pain. absent: Diarrhea, Nausea, Vomiting Physical Exam Vital Signs Reviewed: Yes Vital Signs Temp Pulse Resp BP Pulse Ox 05/25/17 20:14 98.4 F 81 18 122/84 100 Temperature: Afebrile Blood Pressure: Normal Pulse: Regular Respiratory Rate: Normal Appearance: Positive for: Well-Appearing, Non-Toxic, Comfortable Pain Distress: None Mental Status: Positive for: Alert and Oriented X 3 - Systems Exam Head: Present: Atraumatic, Normocephalic Pupils: Present: PERRL Extroacular Muscles: Present: EOMI Conjunctiva: Present: Normal Mouth: Present: Moist Mucous Membranes Neck: Present: Normal Range of Motion Respiratory/Chest: Present: Clear to Auscultation, Good Air Exchange. No: Respiratory Distress, Accessory Muscle Use Cardiovascular: Present: Regular Rate and Rhythm, Normal S1, S2. No: Murmurs Abdomen: Present: Tenderness (Mild left sided abdominal tenderness to palpation) , Normal Bowel Sounds. No: Distention, Peritoneal Signs, Rebound, Guarding Back: Present: Normal Inspection Upper Extremity: Present: Normal Inspection. No: Cyanosis, Edema Lower Extremity: Present: Normal Inspection. No: Edema Neurological: Present: GCS=15, CN II-XII Intact, Speech Normal Skin: Present: Warm, Dry, Normal Color. No: Rashes Psychiatric: Present: Alert, Oriented x 3, Normal Insight, Normal Concentration Medical Decision Making ED Course and Treatment: 05/25/17 20:47 Impression: A 31 year old female with left lower abdominal pain ro diverticulitis Plan: -- Labs -- Urinalysis -- Tylenol and IV fluids -- Reassess and disposition Progress Notes: 05/26/17 00:48 CT Abdomen and Pelvis shows: Lower thorax: Mild atelectatic changes are visualized at the left lung base. ABDOMEN: Liver: No mass. Gallbladder and bile ducts: The gallbladder is partially contracted, without discrete gallstones. Pancreas: Normal contour, without acute peripancreatic stranding. Spleen: No splenomegaly. Adrenals: No mass. Kidneys and ureters: No hydronephrosis. No solid mass. Stomach and bowel: Colonic diverticula are identified, without acute inflammatory stranding of the adjacent mesentery. Appendix: No findings to suggest acute appendicitis. PELVIS: Bladder: No mass. Reproductive: Unremarkable as visualized. ABDOMEN and PELVIS: Intraperitoneal space: The uterus is retroverted. A small amount of free fluid is seen within the culde-sac and adnexa. A peripherally enhancing probable cyst is visualized within the left ovary measuring 2.0 x 1.9 cm. Bones/joints: No acute fracture. The L1 transverse processes are unfused. Vasculature: No abdominal aortic aneurysm. Lymph nodes: No enlarged lymph nodes. IMPRESSION: 1. The uterus is retroverted. A small amount of free fluid is seen within the cul-de-sac and adnexa. A peripherally enhancing probable cyst is visualized within the left ovary measuring 2.0 x 1.9 cm. Ultrasound is recommended, as clinically indicated. 2. Diverticulosis. 3. Incidental/non-acute findings are described above. 05/26/17 00:57 On re-evaluation, pt states she feel better after Tylenol. Patient denies any urinary symptoms or complaints. Pt states she feels comfortable with discharge. Patient is stable for discharge. Patient was instructed to follow up with physician or return if symptoms worsen or new concerning symptoms arise. 05/26/17 05:39 - Lab Interpretations Lab Results: 05/25/17 21:14 05/25/17 21:14 Lab Results 05/25/17 21:14: Sodium 139, Potassium 4.3, Chloride 99, Carbon Dioxide 28, Anion Gap 16, BUN 19, Creatinine 0.7, Est GFR ( Amer) > 60, Est GFR (Non- Af Amer) > 60, Random Glucose 94, Calcium 10.4, Total Bilirubin 0.4, AST 21, ALT 31, Alkaline Phosphatase 38, Total Protein 7.4, Albumin 4.4, Globulin 3.1, Albumin/Globulin Ratio 1.4, Lipase 129 05/25/17 21:14: Urine Color Yellow, Urine Appearance Clear, Urine pH 6.0, Ur Specific [place] 1.020, Urine Protein Negative, Urine Glucose (UA) Negative, Urine Ketones Negative, Urine Blood Negative, Urine Nitrate Negative, Urine Bilirubin Negative, Urine Urobilinogen 0.2, Ur Leukocyte Esterase Trace H, Urine RBC 0 - 2, Urine WBC 5 - 10, Ur Epithelial Cells Many, Amorphous Sediment Few, Urine Bacteria Many, Urine Other Fiber, Urine HCG, Qual Negative 05/25/17 21:14: PT 10.8, INR 0.95, APTT 31.1 05/25/17 21:14: WBC 7.5 D, RBC 4.27, Hgb 13.3, Hct 39.2, MCV 91.8, MCH 31.1, MCHC 33.9, RDW 13.0, Plt Count 224, MPV 10.8, Gran % 49.7 L, Lymph % (Auto) 40.7 H, Bertie % (Auto) 6.9 H, Eos % (Auto) 2.4, Baso % (Auto) 0.3, Gran # 3.74, Lymph # (Auto) 3.1, Bertie # (Auto) 0.5, Eos # (Auto) 0.2, Baso # (Auto) 0.02 I have reviewed the lab results: Yes - RAD Interpretation Radiology Orders: 05/25/17 21:40 ABD & PELVIS IV CONTRAST ONLY [CT] Stat Kit Planner: Radiologist - Medication Orders Current Medication Orders: Discontinued Medications Acetaminophen (Tylenol 325mg Tab) 975 mg PO STAT STA Stop: 05/25/17 20:42 Last Admin: 05/25/17 21:10 Dose: 975 mg MAR Pain/Vitals Document 05/25/17 21:10 HI (Rec: 05/25/17 21:10 [id number]) Pain Reassessment Is This A Pain ReAssessment? No Sodium Chloride (Sodium Chloride 0.9%) 1,000 mls @ 1,000 mls/hr IV .Q1H STA Stop: 05/25/17 21:40 Last Admin: 05/25/17 21:06 Dose: 1,000 mls/hr eMAR Start Stop Document 05/25/17 21:06 HI (Rec: 05/25/17 21:06 [id number]) Intravenous Solution Start Date 05/25/17 Start Time 21:06 Disposition/Present on Arrival - Present on Arrival Any Indicators Present on Arrival: No History of DVT/PE: No History of Uncontrolled Diabetes: No Urinary Catheter: No History of Decub. Ulcer: No History Surgical Site Infection Following: None - Disposition Have Diagnosis and Disposition been Completed?: Yes Diagnosis: Abdominal pain, Ovarian cyst Disposition: HOME/ ROUTINE Disposition Time: 00:55 Condition: STABLE Discharge Instructions (ExitCare): Ovarian Cyst (ED), Acute Abdominal Pain (ED) Additional Instructions: follow up with specialist. return to er with worsening symptoms or concerns. Referrals: Tay Fernández, [Primary Care Provider] - Follow up with primary [facility] [Outside] - Follow up with primary [facility] [Outside] - Follow up with [facility] [Outside] - Follow up with primary [facility] [Outside] - Follow up with primary Forms: [employer] (Serbian)
[2017-05-25 21:27] LABS: BASO # 0.02 K/mm3 (0.0-2.0); BASO % 0.3 % (0.0-3.0); EOS # 0.2 (0.0-0.7); EOS % 2.4 % (1.5-5.0); GRAN # 3.74 (1.4-6.5); GRAN % 49.7 % (50.0-68.0); HEMOGLOBIN 13.3 g/dL (12.0-16.0); LYMPH # 3.1 (1.2-3.4); LYMPH % 40.7 % (22.0-35.0); MEAN CELL VOLUME 91.8 fl (80.0-105.0); MEAN CORPUSCULAR HEMOGLOBIN 31.1 pg (25.0-35.0); MEAN CORPUSCULAR HGB CONC 33.9 g/dl (31.0-37.0); MEAN PLATELET VOLUME 10.8 fl (7.0-11.0); MONO # 0.5 (0.1-0.6); MONO % 6.9 % (1.0-6.0); RBC 4.27 10^6/uL (3.5-6.1); WHITE BLOOD COUNT 7.5 10^3/ul (4.5-11.0)
[2017-05-25 21:28] LABS: ALB/GLOB RATIO 1.4 (1.1-1.8); ALBUMIN 4.4 g/dL (3.0-4.8); ALT/SGPT 31 U/L (7-56); AST/SGOT 21 U/L (14-36); BLOOD UREA NITROGEN 19 mg/dL (7-21); CALCIUM 10.4 mg/dL (8.4-10.5); GFR AFRICAN-AMERICAN > 60; GFR NON-AFRICAN AMERICAN > 60; LIPASE 129 U/L (23-300)
[2017-05-25 21:30] LABS: URINE BILIRUBIN NEGATIVE (NEGATIVE); URINE BLOOD NEGATIVE (NEGATIVE); URINE GLUCOSE (UA) NEGATIVE (NEGATIVE); URINE LEUKOCYTE ESTERASE TRACE Leu/uL (NEGATIVE); URINE NITRATE NEGATIVE (NEGATIVE); URINE PROTEIN NEGATIVE mg/dL (<30 mg/dL); URINE UROBILINOGEN 0.2 E.U./dL (<1 E.U./dL)
[2017-05-25 21:34] LABS: HCG,QUALITATIVE URINE NEGATIVE (NEGATIVE)
[2017-05-25 21:35] LABS: URINE APPEARANCE CLEAR (CLEAR); URINE COLOR YELLOW (YELLOW)
[2017-05-25 21:39] LABS: URINE BACTERIA MANY (NEG); URINE EPITHELIAL CELLS MANY /hpf (0-5); URINE RBC 0 - 2 /hpf (0-2)
[2017-05-25 21:40] LABS: INR 0.95 (0.93-1.08); PARTIAL THROMBOPLASTIN TIME 31.1 Seconds (25.1-36.5); PROTHROMBIN TIME 10.8 SECONDS (9.4-12.5); URINE AMORPHOUS SEDIMENT FEW
--- NOTE | 2017-05-26 00:45 | CT ---
EXAM: CT Abdomen and Pelvis With Intravenous Contrast EXAM DATE/TIME: 05/25/2017 9:40 PM CLINICAL HISTORY: The patient age is 31 years old and is female; Pain; Abdominal pain; Acute; Additional info: Left sided pain h/o of diverticulitis Facility exam id and description: Ct abdpelciv abd pelvis iv contrast only TECHNIQUE: Axial computed tomography images of the abdomen and pelvis with intravenous contrast. All CT scans at this facility use one or more dose reduction techniques, viz.: automated exposure control; ma/kV adjustment per patient size (including targeted exams where dose is matched to indication; i.e. head); or iterative reconstruction technique. CONTRAST: 100 mL of omni 350 administered intravenously. COMPARISON: No relevant prior studies available. FINDINGS: Lower thorax: Mild atelectatic changes are visualized at the left lung base. ABDOMEN: Liver: No mass. Gallbladder and bile ducts: The gallbladder is partially contracted, without discrete gallstones. Pancreas: Normal contour, without acute peripancreatic stranding. Spleen: No splenomegaly. Adrenals: No mass. Kidneys and ureters: No hydronephrosis. No solid mass. Stomach and bowel: Colonic diverticula are identified, without acute inflammatory stranding of the adjacent mesentery. Appendix: No findings to suggest acute appendicitis. PELVIS: Bladder: No mass. Reproductive: Unremarkable as visualized. ABDOMEN and PELVIS: Intraperitoneal space: The uterus is retroverted. A small amount of free fluid is seen within the cul-de-sac and adnexa. A peripherally enhancing probable cyst is visualized within the left ovary measuring 2.0 x 1.9 cm. Bones/joints: No acute fracture. The L1 transverse processes are unfused. Vasculature: No abdominal aortic aneurysm. Lymph nodes: No enlarged lymph nodes. IMPRESSION: 1. The uterus is retroverted. A small amount of free fluid is seen within the cul-de-sac and adnexa. A peripherally enhancing probable cyst is visualized within the left ovary measuring 2.0 x 1.9 cm. Ultrasound is recommended, as clinically indicated. 2. Diverticulosis. 3. Incidental/non-acute findings are described above.
== END 2017-05-26 01:09 | disposition home or self-care (01) ==
LOC: ED 19:39
DX: N83.202 Unspecified ovarian cyst, left side (principal); R10.32 Left lower quadrant pain
CPT/HCPCS: 74177; 80053; 81001; 83690; 84703; 85025; 85610; 85730; 87086; 99283; J7040